=== PATIENT | female | born 1985 | race Caucasian/White ===

== ENCOUNTER 2017-01-29 13:25 | Emergency (ER) | payer OTHER ==
[~2017-01-29] VITALS: Ht 170.2 cm; Wt 76.4 kg
[2017-01-29 13:49] LABS: POINT-OF-CARE METER ID UU13113778; POINT-OF-CARE USER ID NUTJNM
[2017-01-29 15:15] LABS: CHLORIDE 111 mEq/L (99-109); POTASSIUM 3.8 mEq/L (3.7-5.4); SODIUM 139 mEq/L (136-147)
[2017-01-29 15:17] LABS: GLUCOSE 97 mg/dL (70-99)
[2017-01-29 15:18] LABS: ANION GAP 8 MEQ/L (2-14)
[2017-01-29 15:20] LABS: GFR ESTIMATE (CALCULATED) > 59 mL/min/
[2017-01-29 15:28] LABS: HEMATOCRIT 31.5 % (36.0-46.0); MCH 20.8 PG (29.0-34.0); MCHC 30.8 G/DL (30.0-36.0); MCV 67.5 FL (83-99); MEAN PLAT.VOLUME 10.3 uM^3 (9.5-12.4); PLATELET COUNT 388 K/uL (156-360); QUANTITATIVE HCG < 4.0 MIU/ML; RBC DIS.WIDTH-CV 17.4 % (11.8-14.6); RBC DIS.WIDTH-SD 41.1 % (39-53); RED BLOOD COUNT 4.67 M/uL (3.80-5.20); WHITE BLOOD COUNT 10.2 K/uL (4.1-10.2)
[2017-01-29 15:43] LABS: UREA NITROGEN (BUN) 6 mg/dL (9-23)
[2017-01-29] MEDS ORDERED: ANTIVERT25 MG PO (16:25)
[2017-01-29 16:27] LABS: ADD MIUA? YES; BILIRUBIN NEGATIVE; BLOOD NEGATIVE; COLOR YELLOW ((YELLOW)); GLUCOSE (STRIP) NEGATIVE; KETONES 80; LEUKOCYTES NEGATIVE; NITRITE NEGATIVE; PROTEIN (STRIP) NEGATIVE; UROBILINOGEN 0.2 MG/DL (0.2-1.0)
[2017-01-29 16:41] LABS: BACTERIA RARE /HPF; EPITHELIAL CELLS RARE /HPF; MUCUS 2+ /LPF; RED BLOOD CELLS 0-5 /HPF (0-5); UCUL ADDED? NO; UNCLASSIFIED CRYSTALS 1+ /HPF; WHITE BLOOD CELLS 0-5 /HPF (0-5)
[2017-01-29 17:20] VITALS: BP 135/85
== END 2017-01-29 17:24 | disposition home or self-care (01) ==
LOC: EME 13:25
PROVIDERS: Physician Assistant Medical
DX: H81.10 Benign paroxysmal vertigo, unspecified ear (principal)
CPT/HCPCS: 80048; 81003; 84702; 85027; 93005; 99281; 99284

== ENCOUNTER 2017-02-11 18:45 | Emergency (ER) | payer OTHER ==
[~2017-02-11] VITALS: Ht 172.7 cm; Wt 77.8 kg
[~2017-02-11 18:45] MED LIST: ANTIVERT25 MG PO
[2017-02-11 19:09] VITALS: BP 147/96
[2017-02-11 20:07] LABS: CHLORIDE 106 mEq/L (99-109); POTASSIUM 3.3 mEq/L (3.7-5.4); SODIUM 141 mEq/L (136-147)
[2017-02-11 20:08] LABS: GLUCOSE 98 mg/dL (70-99)
[2017-02-11 20:12] LABS: CREATININE 0.7 mg/dL (0.6-1.3); GFR ESTIMATE (CALCULATED) > 59 mL/min/
[2017-02-11 20:13] LABS: HEMATOCRIT 32.2 % (36.0-46.0); HEMOGLOBIN 9.5 G/DL (11.9-15.5); MCH 20.4 PG (29.0-34.0); MCHC 29.5 G/DL (30.0-36.0); MCV 69.1 FL (83-99); PLATELET COUNT 453 K/uL (156-360); RBC DIS.WIDTH-CV 19.3 % (11.8-14.6); RBC DIS.WIDTH-SD 46.4 % (39-53); RED BLOOD COUNT 4.66 M/uL (3.80-5.20); UREA NITROGEN (BUN) 6 mg/dL (9-23); WHITE BLOOD COUNT 12.3 K/uL (4.1-10.2)
[2017-02-11 20:17] LABS: TROP-I INTERPRETATION NEGATIVE; TROPONIN-I < 0.01 ng/mL (0.0-0.30)
== END 2017-02-12 02:10 | disposition left against medical advice (07) ==
LOC: EME 18:45
DX: R07.89 Other chest pain (principal); Z53.21 Procedure and treatment not carried out due to patient leaving prior to being seen by health care provider
CPT/HCPCS: 71046; 80048; 84484; 85027; 93005